=== PATIENT | male | born 1980 | race Caucasian/White ===

== ENCOUNTER → 2024-03-24 | Outpatient (REF) | payer OTHER, SELFPAY | LOC: DHSLP | PROVIDERS: ATTENDING PHYSICIAN Internal Medicine; FAMILY PHYSICIAN Family Medicine | DX: G47.33 Obstructive sleep apnea (adult) (pediatric) (principal) | CPT/HCPCS: 95800 ==

== ENCOUNTER 2025-03-14 02:59 | Emergency (ER) | payer OTHER, SELFPAY ==
[2025-03-14 03:00] VITALS: BP 174/106
[2025-03-14 03:23] LABS: COVID-19 Antigen Positive (Negative)
--- NOTE | 2025-03-14 06:10 | ED.GENMED ---
History of Present Illness
General
Chief Complaint: Fever
Time Seen by Provider: 03/14/25 06:01
History of Present Illness
History of Present Illness:
TIME OF INITIAL ENCOUNTER: 6:10 AM
HPI: The patient presents with fevers. He was concerned that he might have COVID. He was recently placed on clindamycin and valacyclovir for 'swollen lymph nodes'. He started having fevers 2 nights ago that keep persisting despite 400 mg of
Motrin. He states the Tylenol does not typically work for him. He was concerned and came in to the Emergency Department as his room air sat at home on a portable pulse ox was 82%.
EXAM:
GENERAL: Well appearing in no distress
HEENT: Moist oral mucosa
CARDIOVASCULAR: No murmurs, normal heart rate, regular rhythm, No chest wall tenderness
PULMONARY: No respiratory distress, breath sounds are clear and equal
ABDOMEN: Soft with no peritoneal signs, no tenderness
NEUROLOGIC: Excellent strength all extremities, no coordination deficits
PSYCHIATRIC: Appropriate mental status, normal insight and judgement
EXTREMITIES: Nontender, no edema, moves all extremities equally
SKIN: No rash, no lesions
NUMBER AND COMPLEXITY OF PROBLEMS ADDRESSED AT THE ENCOUNTER
� Chronic conditions affecting care: Has had COVID in the past but otherwise healthy
� Acute Exacerbation and/or Progression of Chronic Illness: This is an acute problem
� Differential Diagnosis includes: Viral syndrome, COVID, flu, highly doubt pneumonia, vital signs are not consistent with sepsis
AMOUNT AND/OR COMPLEXITY OF DATA TO BE REVIEWED AND ANALYZED
� I performed an independent evaluation of and my interpretation is:
EKG:
CT:
X-rays:
Laboratory Studies: COVID positive
Other:
� Review of other/old records: The patient was seen in the Emergency Department 2008 with abdominal pain
� Clinical information was obtained by an independent historian: None needed
� Prescriptions/Medications Considered but not given: Considered Paxlovid however the patient is very healthy and is already on valacyclovir
� Further testing considered but not performed:
RISK OF COMPLICATIONS AND/OR MORBIDITY OR MORTALITY OF PATIENT MANAGEMENT
� Social determinants of health affecting care: Lives at home
� Discussion with other providers:
� Escalation of care including admission/observation vs risk of discharge considered: The patient's room air sat is 98 to 99% here. He is afebrile and very well-appearing. His lung sounds are clear.
ANY OTHER UPDATES:
Phy Exam
Physical Exam
Physical Exam:
See HPI
Sepsis
Sepsis Screening
Sepsis Assessment: Sepsis Ruled Out
Sepsis Screen
Sepsis Screen: Sepsis Ruled Out
Date: 03/14/25
Time: 06:23
Course
Orders/Labs/Results
Orders:
Orders
03/14/25 03:08
COVID-19 Antigen Urgent
Source: Nasal Swab
Influenza A+B Rapid Molecular Urgent
JUNIOR Source: Nasal Swab
Specimen Description:
Abnormal Lab Results
03/14/25
03:08
SARS-CoV-2 Antigen Positive A
(Negative)
Vital Signs
Initial and Last Documented VS:
Initial Vital Signs
Temp Pulse Resp BP Pulse Ox
36.7 C 88 22 174/106 96
03/14/25 03:00 03/14/25 03:00 03/14/25 03:00 03/14/25 03:00 03/14/25 03:00
Last Documented Vital Signs
Temp Pulse Resp BP Pulse Ox
36.7 C 88 22 174/106 96
03/14/25 03:00 03/14/25 03:00 03/14/25 03:00 03/14/25 03:00 03/14/25 03:00
*Critical Care Note
Total Time (30-74mins, 75-104mins- exclusive of procedures): Not Applicable
ED Attending Note
-
Portions of this chart may have been created with voice recognition software.� Occasional wrong word or��sound alike� substitutions may have occurred due to the inherent limitations of voice recognition software.
Discharge Plan
Departure
Patient Disposition: Home (Routine Discharge)
Date of Disposition: 03/14/25
Time of Disposition: 06:19
Patient with high blood pressure during this ER visit?: Yes
Discharge Problem:
COVID-19
Instructions: COVID-19 in adults - Discharge instructions
Referrals:
Sunil Harvey MD [Family Provider, [facility]]
Activity Restrictions/Additional Instructions:
I recommend 3-4 [id number] ibuprofen (Motrin) every 8 hours with food for a few days.Return here if worse. Your COVID test is positive today. Try to limit interaction with others over the next few days. You can take Tylenol in addition to
ibuprofen for fevers. Your oxygen level here without any additional oxygen is 98 to 99%.
Interventions
Interventions:
*Risk Screen - Suicide Last Done: 03/14/25 03:00
*Neglect/Abuse Screening Last Done: 03/14/25 03:00
Discharge Date and Time
Print Language: FAROESE
== END 2025-03-14 06:37 | disposition home or self-care (01) ==
LOC: EMR 02:59
PROVIDERS: Emergency Medicine; EMERGENCY PHYSICIAN Emergency Medicine; FAMILY PHYSICIAN Family Medicine
DX: U07.1 COVID-19 (principal); Z11.52 Encounter for screening for COVID-19; R03.0 Elevated blood-pressure reading, without diagnosis of hypertension; R59.9 Enlarged lymph nodes, unspecified
CPT/HCPCS: 99283; 87502; 87811

== ENCOUNTER → 2025-09-20 08:16 | Outpatient (REF) | payer OTHER, SELFPAY | LOC: RCS 08:16 | PROVIDERS: ATTENDING PHYSICIAN Internal Medicine Cardiovascular Disease; FAMILY PHYSICIAN Family Medicine | DX: R07.2 Precordial pain (principal) | CPT/HCPCS: 93017; 93350 ==